=== PATIENT | female | born 1980 | race Caucasian/White ===

== ENCOUNTER 2017-06-08 19:19 | Emergency (ER) | payer MEDICAID ==
[~2017-06-08] VITALS: Ht 157.5 cm; Wt 78.5 kg
[~2017-06-08 19:19] MED LIST: AMO500 PO; FLUT16SP24 NASAL; NEOM10SO20 LEFT EAR; PRED20TA PO
[2017-06-08 19:23] VITALS: Ht 157.5 cm; Wt 78.5 kg
[2017-06-09] MEDS ORDERED: KETOROLAC 60 MG INJ IM STA (00:36)
--- NOTE | 2017-06-09 00:58 | ERD ---
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 Patient describes the pain as throbbing pain, 6/10 scale, is worse upon movement of the right shoulder. Patient denies any numbness or tingling. Patient denies any dyspnea on exertion or dyspnea on lying down. Patient denies any dizziness. ROS All systems reviewed and are negative except as per history of present illness. Medications Home Meds Active Scripts Fluticasone Propionate* (Flonase* Nasal) 50 Mcg/[place] - 16 Gm [place].susp, 2 SPRAY NASAL DAILY for 14 Days, SPRAY TO EACH NOSTRIL Prov:NAGA CORBIN MD 04/17/15 Prednisone* (Prednisone*) 20 Mg Tab, 40 MG PO DAILY for 4 Days, TAB Prov:NAGA CORBIN MD 04/17/15 Neomycin/Polymyxin/Hydrocort* (Cortisporin* Otic) 10 Ml Soln, 4 DROP LEFT EAR BID for 7 Days, BOTTLE Prov:JAMEY BAUTISTA 04/12/15 Amoxicillin* (Amoxicillin*) 500 Mg Cap, 500 MG PO TID for 7 Days, CAP Prov:JAMEY BAUTISTA 04/12/15 Allergies Allergies: Coded Allergies: No Known Allergy (Unverified , 04/12/15) PMhx/Soc Medical and Surgical Hx: pt denies Medical Hx, pt denies Surgical Hx History of Surgery: No Anesthesia Reaction: No Hx Neurological Disorder: No Hx Respiratory Disorders: No Hx Cardiac Disorders: No Hx Psychiatric Problems: No Hx Miscellaneous Medical Probl: No Hx Alcohol Use: No Hx Substance Use: No Hx Tobacco Use: No FmHx Family History: No coronary disease, No diabetes, No other Physical Exam Vitals Vital Signs Date Time Temp Pulse Resp B/P Pulse Ox O2 Delivery O2 Flow Rate FiO2 06/08/17 19:23 97.8 66 20 106/61 99 Physical Exam GENERAL: The patient is well developed and appropriate for usual state of health, in no apparent distress. CHEST: Clear to auscultation bilaterally. There are no rales, wheezes or rhonchi. HEART: Regular rate and rhythm. No murmurs, clicks, rubs or gallops. No S3 or S4. ABDOMEN: Soft, nontender and nondistended. Good bowel sounds. No rebound or guarding. No gross peritonitis. No gross organomegaly or masses. No Vincent sign or McBurney point tenderness. BACK: No midline or flank tenderness. EXTREMITIES: Equal pulses bilaterally. There is no peripheral clubbing, cyanosis or edema. No focal swelling or erythema. Full range of motion. Grossly neurovascularly intact. NEURO: Alert and oriented. Cranial nerves 2-12 intact. Motor strength in all 4 extremities with 5/5 strength. Sensation grossly intact. Normal speech and gait. SKIN: There is no apparent rash or petechia. The skin is warm and dry. HEMATOLOGIC AND LYMPHATIC: There is no evidence of excessive bruising or lymphedema. No gross cervical, axillary, or inguinal lymphadenopathy. Results 24 hrs Current Medications Medications (Trade) Dose Ordered Sig/[place] Route PRN Reason Start Time Stop Time Status Last Admin Dose Admin Ketorolac Tromethamine (Toradol) 60 mg ONCE STAT IM 06/09/17 00:36 06/09/17 00:37 DC 06/09/17 01:18 Patient was given medication for pain here in emergency department, after treatment, patient verbalized feeling much better. Patient's pain is improved. EKG was done, read by me and is normal sinus rhythm at a rate of 72, normal axis , there is no ST changes or changes in the EKG that indicates any cardiac emergencies at this time. Patient's EKG was also reviewed by Dr. Alvarez Impression: no acute findings on EKG PROCEDURE: XR Chest. CLINICAL INDICATION: Chest pain. TECHNIQUE: Single frontal view of the chest was obtained COMPARISON: 06/09/2013. FINDINGS: The heart and mediastinum are within normal limits. The lungs are clear. There is no pleural effusion or pneumothorax. IMPRESSION: No acute disease. RPTAT: [facility] Physician Malachi Date Time Electronically viewed and signed by Physician Malachi on 06/09/2017 01:27 RS/ CC: MITESH SESAY NP Procedures/MDM Medical Decision Making: Patient's symptoms most likely consistent with chest wall strain.There is low suspicion for cardiopulmonary emergencies at this time. Patient has low risk factors. EKG is normal, there is no changes in the EKG that indicates cardiac emergencies. Chest X-ray does not show cardiopulmonary emergencies at this time. There is low suspicion for aortic aneurysm, myocardial infarction, pneumothorax, pleural effusion, pulmonary embolism, or any other cardiopulmonary emergencies at this time. patient was given for ibuprofen for pain tramadol for severe pain. Patient was advised follow-up with primary care doctor in 2-3 days for reevaluation of symptoms. Patient was advised to return to emergency department for any worsening symptoms. Dispostion: Home. Stable Departure Diagnosis: Primary Impression: Chest wall muscle strain Encounter type: initial encounter Qualified Code: S29.011A - Muscle strain of chest wall, initial encounter Condition: Stable Patient Instructions: Chest Wall Strain MITESH SESAY NP Jun 09, 2017 00:58
--- NOTE | 2017-06-09 01:28 | RADRPT ---
PROCEDURE: XR Chest. CLINICAL INDICATION: Chest pain. TECHNIQUE: Single frontal view of the chest was obtained COMPARISON: 06/09/2013. FINDINGS: The heart and mediastinum are within normal limits. The lungs are clear. There is no pleural effusion or pneumothorax. IMPRESSION: No acute disease. RPTAT: [facility] Physician Malachi Date Time Electronically viewed and signed by Denia Alex Physician on 06/09/2017 01:27 RS/
[2017-06-09] MEDS ORDERED: TRAM50TA2 PO (01:37)
[2017-06-09] MEDS ORDERED: IBUP-1542 PO (01:37)
[2017-06-09 02:02] VITALS: BP 108/57; PULSE 65; RESP 18
== END 2017-06-09 02:03 | disposition home or self-care (01) ==
LOC: FTE 19:19
DX: S29.011A Strain of muscle and tendon of front wall of thorax, initial encounter (principal); X50.9XXA Other and unspecified overexertion or strenuous movements or postures, initial encounter; Y92.89 Other specified places as the place of occurrence of the external cause
CPT/HCPCS: 71010; 93005; 96372; J1885; Z7502